=== PATIENT | female | born 1945 | race Caucasian/White ===

== ENCOUNTER 2019-07-21 10:59 | Emergency (ER) | payer SELFPAY ==
--- NOTE | ~2019-07-21 | XR_ITS ---
XR chest 1V DATE: 07/21/2019 11:10 INDICATION: Slurred speech. Weakness. TECHNIQUE: AP chest COMPARISON: None FINDINGS: Heart size is within normal range. There is aortic calcification, ectasia and unfolding. No hilar or mediastinal mass lesion is evident. There is mild discoid atelectasis or scarring in the lower lung zones. No pulmonary consolidation, pl eural effusion, pulmonary vascular congestion or pneumothorax is evident. Diffuse osteopenia. Osteoarthritic change at the glenohumeral joints. IMPRESSION: Mild discoid atelectasis or scarring in the lower lung zones Reviewed, dictated and finalized at location [facility]. LITY SUPERVISOR
--- NOTE | ~2019-07-21 | CT_ITS ---
EXAMINATION: CT brain wo con DATE: 07/21/2019 11:06 INDICATION: Slurred speech TECHNIQUE: Computed tomography (CT) of the head was performed without intravenous contrast. The mA wa s adjusted according to patient size. Iterative reconstruction technique was employed. Exam dose: 60 5.33 mGy-cm total exam DLP. COMPARISON: None FINDINGS: Vertebrobasilar and internal carotid artery calcifications. There is nonspecific patchy dim inished attenuation of the subcortical and periventricular cerebral white matter, likely due to chron ic small vessel ischemic changes. No intracranial mass lesion or hemorrhage or recent cerebrovascular accident is evident. No subdural or epidural hematoma. There is some prominent soft tissue thickening and calcification within the left maxillary sinus. The included paranasal sinuses and mastoid air cells are otherwise unremarkable. No fracture or bone destruction of the cranial vault. IMPRESSION: Cerebral atherosclerosis and chronic small vessel ischemic changes of the cerebral white matter No acute intracranial finding Dr. Pritchard telephoned the CT report to emergency room physician Dr. Gonsales on 07/31/2019 at 1314 eleanor rs I don't Reviewed, dictated and finalized at [facility]. Reviewed, dictated and finalized at location [facility]. ICAL DATA RESEARCH IMPRESSION: Cerebral atherosclerosis and chronic small vessel ischemic changes of the cerebral white matter No acute intracranial finding Dr. Pritchard telephoned the CT report to emergency room physician Dr. Gonsales on 07/31/2019 at 1314 hours I don't
--- NOTE | 2019-07-21 10:52 | ECG_ITS ---
Measurements Intervals [place] Rate: 76 P: 16 MN: 134 QRS: -15 QRSD: 106 T: 19 QT: 390 QTc: 441 Interpretive Statements SINUS RHYTHM BORDERLINE T WAVE ABNORMALITY- INFERIOR LEADS BASELINE ARTIFACT- I, II, III, AVR, AVL, AVF, V1 BORDERLINE ECG Electronically Signed On 07-22-2019 8:33:40 [employer] OPERATOR by Ad Heath D.O.
--- NOTE | 2019-07-21 11:09 | ED.NEUROSD ---
HPI - Neuro Symptoms/Deficit General Chief Complaint: Suspected CVA Stated Complaint: code cva Time Seen by Provider: 07/21/19 11:09 Source: patient Mode of arrival: EMS Limitations: no limitations History of Present Illness HPI Narrative: The pt is a 73 y/o female who presents to the ED, via EMS, c/o neurological deficits onset 1000 today. Pt states that at that time, she began to experience dizziness and some right-sided weakness while saddling her horse. Patient then slid down due to what she was experiencing. Pt states that she has not seen a doctor in 30 years. Pt states that she has no PMHx, PSHx, or social history of smoking cigarettes. Pt states that she is not experiencing any vision changes. Pt notes that she takes Aspirin 81 mg once per day, as well as Ibuprofen. Onset (ago): hour(s) (1) Last Observed Normal: 10:00 Timing confirmed by: other (Patient states this was when her symptoms began) Location: right arm, right leg and other (Dizziness) History of same: No Quality: weak Associated symptoms: denies other symptoms Related Data Home Medications Medication Instructions Recorded Confirmed aspirin 81 mg PO DAILY 07/21/19 coenzyme Q10 10 mg PO ONCE 07/21/19 Allergies Allergy/AdvReac Type Severity Reaction Status Date / Time No Known Allergies Allergy Verified 07/21/19 11:42 Review of Systems Review of Systems: All systems reviewed & are unremarkable except as noted in HPI and below Eyes: Eyes: Denies change in vision Neurologic: Reports dizziness and Reports weakness (Right-sided) PMFSH Past Medical History Medical History (Updated 07/21/19 @ 12:01 by Heather Gonsales MD) No significant past medical history Surgical History Surgical History (Updated 07/21/19 @ 11:25 by Kyle Jamison) No history of previous surgery Social History Social History (Updated 07/21/19 @ 11:25 by Kyle Jamison) Smoking status: Never smoker Exam Const: General: cooperative, no acute distress and alert Nutritional Appearance: well nourished Orientation/consciousness: patient oriented x3 Limitations: no limitations HENMT: Mouth: Yes lip normal and Yes moist mucous membranes Resp: Effort & Inspection: normal respiratory effort Auscultation: clear to auscultation bilaterally Cardio: Rate: regular rate Rhythm: regular rhythm Skin: General skin exam: normal color Neuro: General: other (Patient can move her eyes to the right, but not to the left) Cranial nerves: Yes Midline tongue present and Yes Other cranial nerve findings present (Right-sided facial droop with forehead sparing) Speech: Abnormal speech present slurred Motor exam (neuro): Other motor observations present (RLE and RUE weakness) Sensory Exam: normal sensation Coordination: [id number] test normal (On the left) and other (Abnormal [id number] on the right) Extrem: General: normal to inspection, full ROM and no clubbing, cyanosis or edema Psych: Mental Status: mental status grossly normal Affect: normal affect Attitude: cooperative Course Course Emergency Course: Patient presents with findings consistent with acute ischemic CVA. Patient significantly hypertensive on arrival. 2 doses of IV labetalol given and patient started on nicardipine drip. Once blood pressure was below 185/110, TPA was given. Patient is being transferred emergently to the emergency department at [facility] for comprehensive stroke center evaluation and treatment. Patient is being sent by [facility] due to multiple drips running that could require titration for her blood pressure as well as time sensitive emergency requiring rapid transport. Consultations Consultation #1: Discussed case with Dr. Soto at [facility], who requested starting a Nicardipine drip in addition to the Labetalol. Requests pt be transferred as a code stroke to the [facility] ER. Also requests pt be given tPA if BP can be lowered below 185/110. Date:
[2019-07-21 11:29] VITALS: BP 216/120; PULSE 79; RESP 18; O2SAT 100
[2019-07-21] MEDS: LABETALOL HCL INJ 100 MG/20 ML VIAL 10 MG IV PUSH ×2 (11:29→11:47)
[2019-07-21 11:30] VITALS: BP 232/128; PULSE 82; RESP 18; O2SAT 100
[2019-07-21] MEDS: niCARdipine 20 MG/200 ML 20 MG/200 ML BAG 50 MG IV CONT (11:34)
[2019-07-21 11:35] LABS: Basophils Absolute Auto 0.1 K/mm3 (0.0-0.1); Basophils Percent Auto 0.8 % (0.2-1.2); Eosinophils Absolute Auto 0.2 K/mm3 (0-0.3); Eosinophils Percent Auto 2.6 % (0-4.4); Hemoglobin 13.6 g/dL (12.0-15.0); Immature Granulocyte Absolute 0.03 K/mm3 (0.00-0.031); Immature Granulocyte Percent A 0.5 % (0-0.5); Lymphocytes Absolute Auto 0.96 K/mm3 (0.9-3.2); Lymphocytes Percent Auto 14.8 % (18.3-44.2); Mean Corpuscular HGB Conc 31.6 g/dl (32-36); Mean Corpuscular Hemoglobin 28.9 pg (26-34); Mean Corpuscular Volume 91.3 fl (80-100); Mean Platelet Volume 9.4 fl (7.4-10.4); Monocytes Absolute Auto 0.6 K/mm3 (0.1-0.6); Monocytes Percent Auto 8.8 % (2.6-8.5); Neutrophils Absolute Auto 4.7 K/mm3 (1.3-6.7); Neutrophils Percent Auto 72.5 % (45.5-73.1); Platelet Count Result 304 k/mm3 (150-375); Red Blood Count 4.71 M/mm3 (4.2-5.4); Red Cell Distribution Width 13.2 % (11.5-14.5); White Blood Count 6.5 K/mm3 (4.5-10.0)
[2019-07-21 11:36] VITALS: BP 184/113; PULSE 77; RESP 18; O2SAT 100
[2019-07-21 11:37] VITALS: BP 216/118; PULSE 76; RESP 15; TEMP 36.6; O2SAT 100
[2019-07-21 11:46] LABS: Partial Thromboplastin Time 20.5 SECONDS (22.3-36.8); Prothrombin Time 12.5 Seconds (11.1-14.7)
[2019-07-21 11:47] LABS: Glucose Point of Care 112 (65-105)
[2019-07-21 11:47] LABS: Blood Urea Nitrogen 20 mg/dL (7-17); Carbon Dioxide 23 mmol/L (22-30); Chloride 99 mmol/L (98-107); Estimated CRCL calculation 69 ml/min; Estimated Glomerular Filt Rate > 60; Glucose 111 mg/dL (65-105); Potassium 3.3 mmol/L (3.4-5.0); Sodium 137 mmol/L (137-145)
[2019-07-21 11:48] VITALS: BP 187/100; PULSE 84
--- NOTE | 2019-07-21 11:49 | PC.NURSE ---
STEPH from Dr. Gonsales: give another 10 mg Labetolol STAT. Labetolol 10 mg given now.
[2019-07-21 11:51] VITALS: BP 166/99; PULSE 80; RESP 17; O2SAT 99
[2019-07-21 11:59] LABS: Troponin I < 0.012 ng/mL (0.000-0.034)
== END 2019-07-21 12:00 | disposition short-term general hospital (02) ==
PROVIDERS: Emergency Provider Emergency Medicine
DX: I63.9 Cerebral infarction, unspecified (principal); I16.1 Hypertensive emergency; R29.708 NIHSS score 8; I67.2 Cerebral atherosclerosis; R94.31 Abnormal electrocardiogram [ECG] [EKG]
CPT/HCPCS: 36415; 37195; 70450; 71045; 80048; 82948; 84484; 85025; 85610; 85730; 93005; 96374; 96375; 99285; J2997